=== PATIENT | female | born 1980 | race Caucasian/White ===

== ENCOUNTER → 2019-06-12 | Day surgery (SDC) | payer OTHER ==
[~2019-06-12] MED LIST: ALBU2.5V8 IH; BUPR150T15 PO; DEXT20CA7 PO; FAMO20TA5 PO; FLUO20CA16 PO; FLUT1DIS IH; HYDR-2761 PO; IV RINGERS,LACTATED 1000ML 1,000 ML IV SCH; MONT10TA49 PO; PROPOFOL 40 ML IV ONE; TRAM50TA PO; TRAZ-118 PO
[2019-06-12 09:25] VITALS: BP 98/68
--- NOTE | 2019-06-15 17:06 | PATHOLOGY ---
[facility] Accession Number: [id number] . 01 Material submitted: . PART A: duodenum - DUODENAL BX PART B: colon - RANDOM COLON BIOPSIES . 01 Clinical history: . Abdomen pain, rectal bleeding, GERD . 02 Diagnosis: A. Duodenal and small intestine mucosa, duodenal biopsies: - No significant pathologic abnormalities. . B. Colonic mucosa, random colon biopsies: - No significant pathologic abnormalities. (JPM:[facility] 06/15/2019) [facility] 06/15/2019 1603 Local . 02 Comment: Sections of the duodenal biopsy reveal multiple segments of duodenal and small intestine mucosa. Where best oriented, the mucosal villi show no sprue-like changes or significant inflammatory changes. . Sections of the random colon biopsy reveal multiple segments of colonic mucosa containing multiple, focally hyperplastic, mucosal-associated lymphoid aggregates. There is no evidence of a chronic destructive colitis, lymphocytic colitis, or collagenous colitis. (JPM:[facility] 06/15/2019) . 02 Electronically signed: . Valerio Pedraza MD, Pathologist NPI- [id number] . 01 Gross description: . A. The specimen is received in formalin labeled "Wendy, Elisa, duodenal BX r/o celiac" and consists of multiple fragments of pink-romero tissue measuring 1.4 x 1.2 x 0.3 cm in aggregate are entirely submitted in A1. . B. The specimen is received in formalin labeled "Wendy, Elisa, random colon biopsies" and consists of multiple fragments of pink-romero tissue measuring 1.2 x 0.9 x 0.3 cm in aggregate which are entirely submitted in B1. (GARY; 06/12/2019) JFQ/JFQ 06/12/2019 1501 Local . 02 Pathologist provided ICD-10: R10.9, K62.5, K21.9 . 02 CPT . 735751, [id number] Specimen Comment: A courtesy copy of this report has been sent to [phone], [phone]- Specimen Comment: [id number] Specimen Comment: Report sent to / DR BAZAN Performed at: 01 [facility] [address], [place] [id number] MD Taj Holden MD Phone: [phone] Performed at: 02 [facility] [address], [place] [id number] MD Valerio Pedraza MD Phone: [phone]
== END | disposition home or self-care (01) ==
LOC: ENDOS 07:51
PROVIDERS: ATTEND Internal Medicine Gastroenterology
DX: R19.7 Diarrhea, unspecified (principal); K46.0 Unspecified abdominal hernia with obstruction, without gangrene; K21.9 Gastro-esophageal reflux disease without esophagitis; K63.89 Other specified diseases of intestine; K31.89 Other diseases of stomach and duodenum; J45.909 Unspecified asthma, uncomplicated; F41.9 Anxiety disorder, unspecified; F32.9 Major depressive disorder, single episode, unspecified; Z88.8 Allergy status to other drugs, medicaments and biological substances; Z88.1 Allergy status to other antibiotic agents; Z82.49 Family history of ischemic heart disease and other diseases of the circulatory system; Z83.3 Family history of diabetes mellitus; Z80.0 Family history of malignant neoplasm of digestive organs; Z87.891 Personal history of nicotine dependence; Z79.899 Other long term (current) drug therapy; Z98.890 Other specified postprocedural states
CPT/HCPCS: 43239; 45380; 81025; J2704; 88305